=== PATIENT | male | born 1975 | race Caucasian/White ===

== ENCOUNTER 2024-11-18 19:00 | Emergency (ER) | payer SELFPAY ==
[~2024-11-18] VITALS: Ht 175.3 cm; Wt 72.5 kg
[2024-11-18 19:06] VITALS: O2SAT 98
[2024-11-18] MEDS ORDERED: P20 MT (19:21)
[2024-11-18] MEDS ORDERED: [UNRECOGNIZED DRUG - CODE] MC (19:21)
[2024-11-18] MEDS ORDERED: VALA100044 MT (19:21)
[2024-11-18] MEDS ORDERED: GLYC30DR4 RIGHTEYE (19:21)
[2024-11-18 19:52] VITALS: BP 138/96; PULSE 89; RESP 16; TEMP 36.7; O2SAT 98
== END 2024-11-18 19:56 | disposition home or self-care (01) ==
LOC: ER 19:11
DX: G51.0 Bell's palsy (principal); Z79.624 Long term (current) use of inhibitors of nucleotide synthesis; Z79.899 Other long term (current) drug therapy
CPT/HCPCS: 99283

== ENCOUNTER 2025-07-28 20:30 | Emergency (ER) | payer OTHER ==
[~2025-07-28] VITALS: Ht 167.6 cm; Wt 82.0 kg
[~2025-07-28 20:30] MED LIST: GLYC30DR4 RIGHTEYE; P20 MT; VALA100044 MT; [UNRECOGNIZED DRUG - CODE] MC
[2025-07-28 21:07] VITALS: O2SAT 98
[2025-07-28 22:01] LABS: BASOPHILS % 0.7 % (0.0-2.0); EOSINOPHILS % 1.2 % (0.0-5.0); HEMATOCRIT. 47.8 % (42.0-52.0); HEMOGLOBIN. 16.5 g/dL (14.0-18.0); LYMPHOCYTES % 20.4 % (20.0-50.0); MEAN PLATELET VOLUME 7.1 fl (7.4-10.4); MONOCYTES % 5.9 % (2.0-8.0); NEUTROPHILS % 71.8 % (40.0-76.0); PLATELET 282 x1000/uL (130-400); RED BLOOD CELL COUNT 5.16 mill/uL (4.7-6.1); RED CELL DISTRIBUTION WIDTH 13.4 % (11.6-14.6)
[2025-07-28 22:15] LABS: CREATININE 0.6 mg/dL (0.6-1.3); UREA NITROGEN BLOOD 8 mg/dL (9-23)
[2025-07-28 22:17] LABS: TROPONIN I HIGH SENSITIVITY 5 ng/L (3.0-53)
[2025-07-28] MEDS: ONDANSETRON HCL 4MG TABLET PO ONE (22:41)
[2025-07-28] MEDS: ACETAMINOPHEN 500MG TABLET PO ONE (22:41)
[2025-07-29 01:41] VITALS: BP 124/89; PULSE 70; RESP 18; TEMP 36.5; O2SAT 96
== END 2025-07-29 01:42 | disposition home or self-care (01) ==
LOC: ER 21:47
DX: R07.9 Chest pain, unspecified (principal); R11.2 Nausea with vomiting, unspecified; I10 Essential (primary) hypertension; E11.9 Type 2 diabetes mellitus without complications; Z79.899 Other long term (current) drug therapy
CPT/HCPCS: 80048; 80320; 82962; 85025; 84484; 36415; 71045; 93005; 99285; Q0162; G0480